=== PATIENT | male | born 1960 | race Caucasian/White ===

== ENCOUNTER 2020-01-03 07:14 | Outpatient (REF) | payer MEDICARE, SELFPAY ==
[2020-01-03 11:18] LABS: Hematocrit 40.4 % (42-52); Hemoglobin 13.5 g/dl (14.0-18.0); Mean Corpuscular HGB Conc 33.4 g/dl (31.0-36.0); Mean Corpuscular Hemoglobin 29.5 pg (27.0-33.0); Mean Corpuscular Volume 88.2 fL (80-98); Mean Platelet Volume 9.9 fL (9.4-12.4); Platelet Count 243 X10*3/uL (160-400); Red Blood Count 4.58 X10*6/uL (4.60-5.80); Red Cell Distribution Width 13.1 % (11.0-16.0); White Blood Count 7.6 X10*3/uL (4.8-10.8)
[2020-01-03 11:47] LABS: Cholesterol 268 mg/dL; HDL Cholesterol 33 mg/dL; LDL Cholesterol Calculated 191 mg/dl; Triglycerides 224 mg/dL
[2020-01-03 12:11] LABS: Prostate Specific Antigen < 0.05 ng/mL (<0.05-4.0)
[2020-01-04 19:21] LABS: Prolactin <1.0 ng/mL (2.0-18.0)
[2020-01-07 21:58] LABS: Dihydrotestosterone <5 ng/dL (12-65)
[2020-01-08 14:42] LABS: IGF-1 (Somatomedin C) 16 ng/mL (50-317)
[2020-01-14 10:51] LABS: IGF-1 Z Score (Male) -3.6
== END 2020-01-03 07:15 | disposition home or self-care (01) ==
LOC: HO.HMGCLDS 07:14
PROVIDERS: PCP Nurse Practitioner Family; Visit Provider Internal Medicine Endocrinology, Diabetes & Metabolism
DX: E23.0 Hypopituitarism (principal); E11.9 Type 2 diabetes mellitus without complications; Z79.899 Other long term (current) drug therapy
CPT/HCPCS: 36415; 80061; 82533; 82642; 84146; 84153; 84305; 85027

== ENCOUNTER 2020-01-08 09:37 | Emergency (ER) | payer MEDICARE, SELFPAY ==
[2020-01-08 09:51] VITALS: BP 162/91; PULSE 66; RESP 16; TEMP 36.5; O2SAT 99; BMI 33.9
--- NOTE | 2020-01-08 10:15 | ED_ITS ---
HPI - Extremity Problem General Chief complaint: Extremity Injury, Upper Stated complaint: arm pain Time Seen by Provider: 01/08/20 10:11 Source: patient Mode of arrival: ambulatory Limitations: no limitations History of Present Illness HPI Narrative: 59 y/o male here with 2 days of worsening left shoulder pain after working outside and doing a lot of raking leaves. He states his shoulder chronically hurts after he fell on it a few months ago. He had imaging at the time of injury and there was no acute injury per his report. He states his shoulder hurts with movement and palpation, worse today. He states it usually hurts more when the weather is rainy. No chest pain, SOB, numbness, tingling or new injury. MD Complaint: extremity pain Onset (ago): day(s) (2) Pain Consistency: constant Location: left Severity scale (1-10): 7 Quality: aching Radiation: distal Relieving factors: cold therapy and immobilization Exacerbating factors: range of motion and palpation Associated symptoms: denies other symptoms Related Data Previous Rx's Medication Instructions Recorded oxycodone 5 mg PO Q8H PRN #10 tab NS 01/08/20 prednisone 40 mg PO DAILY #10 tab 01/08/20 Allergies Allergy/AdvReac Type Severity Reaction Status Date / Time No Known Allergies Allergy Unverified 12/13/19 14:50 [No Known Allergies*] NKA Allergy Unknown Unknown Uncoded 01/08/20 09:55 Review of Systems Review of Systems: Constitutional: No Fever, No Chills Cardiovascular: No Chest Pain, No SOB, No Orthopnea Respiratory: No Cough, No Sputum, No Wheezing Musculoskeletal: + joint pain, No Myalgias Skin: No Skin Lesions, No rash Neuro: No Weakness, No Numbness, No Dizziness, No Headache Heme/Lymph: No Bruising, No Lymphadenopathy All other 10 point ROS are negative. [facility] Past Medical History Attestation statement: The following information was validated with the patient. Medical History (Updated 01/08/20 @ 10:19 by SARIKA Monte) Atrial fibrillation Diabetes High blood pressure Skin cancer Social History Social History Advance Directives: Yes Advance Directives on File: Yes Advance Directives Date on File: 05/28/16 Physical Exam Vital Signs: Vital Signs: Vital Signs Temp Pulse Resp BP Pulse Ox 01/08/20 09:51 97.7 F 66 16 162/91 H 99 Body Mass Index 33.9 Appearance: Alert. Oriented X3. No acute distress. HEENT: normal inspection Neck: Normal inspection. Respiratory: No respiratory distress. Skin: Skin warm and dry. Normal skin color. Normal skin turgor. No rashes. Extremities: left anterior shoulder tenderness at biceps insertion site. no deformity. no erythema. limited abduction. strength normal. NV intact. Neuro: Oriented X 3. No sensory deficit. Course Course Course Narrative: signs, symptoms and exam consistent with overuse injury ie tendonitis - will treat with short course of oral steroids. unable to use NSAID given he is on Eliquis for Afib. he is due to see ortho next Tuesday and is going to ask about joint injection at that time. no chest pain, sob, or radiating pain to suggest cardiac etiology. he is stable for discharge. placed in sling for comfort. Discharge Plan Discharge Clinical Impression: Tendonitis of shoulder, left Patient Disposition: Home, Self-Care Instructions: Tendinitis (ED) Additional Instructions: Follow up with your Orthopedic doctor next week as schedule. Use ice and/or heat several times per day. Limit use of your left arm until evaluated by Orthopedics. If you develop worsening pain, numbness, or loss of function call your doctor or come back to the ER for further evaluation. Prescriptions: New prednisone 20 mg tablet 40 mg PO DAILY Qty: 10 RF: 0 oxycodone 5 mg tablet 5 mg PO Q8H PRN (Reason: pain) Qty: 10 RF: 0
== END 2020-01-08 10:37 | disposition home or self-care (01) ==
PROVIDERS: Emergency Provider Emergency Medicine; PCP Nurse Practitioner Family
DX: M75.92 Shoulder lesion, unspecified, left shoulder (principal); I48.91 Unspecified atrial fibrillation; E11.9 Type 2 diabetes mellitus without complications; Z85.828 Personal history of other malignant neoplasm of skin; Z79.84 Long term (current) use of oral hypoglycemic drugs
CPT/HCPCS: 99283

== ENCOUNTER → 2020-01-14 09:27 | Outpatient (BNVA) | payer MEDICARE, SELFPAY | PROVIDERS: PCP Nurse Practitioner Family; Referring Provider Nurse Practitioner Family; Visit Provider Orthopaedic Surgery | DX: M75.52 Bursitis of left shoulder (principal) | CPT/HCPCS: 20610; 99213; J1100 ==

== ENCOUNTER 2020-01-21 07:25 | Outpatient (REF) | payer MEDICARE, SELFPAY | END 2020-01-21 07:26 | disposition home or self-care (01) | LOC: HO.HMGCLDS 07:25 | PROVIDERS: PCP Nurse Practitioner Family; Visit Provider Internal Medicine Endocrinology, Diabetes & Metabolism | DX: E03.9 Hypothyroidism, unspecified (principal) | CPT/HCPCS: 84439 ==

== ENCOUNTER 2020-01-23 21:13 | Emergency (ER) | payer MEDICARE, SELFPAY ==
[2020-01-23 21:21] VITALS: BP 140/76; BP 150/77; PULSE 71; PULSE 72; RESP 16; TEMP 37; O2SAT 96; BMI 33.9
--- NOTE | 2020-01-23 21:42 | ED.WEAKNESS ---
HPI - Weakness General Chief complaint: Weakness Stated complaint: NAUSEA,WEAKNESS Time Seen by Provider: 01/23/20 21:42 Source: patient and EMS Mode of arrival: EMS Limitations: other (vague historian) History of Present Illness MD Complaint: generalized weakness Onset (ago): day(s) (1) Duration: constant Location: generalized Migration: none Severity: moderate Relieving factors: none Exacerbating factors: none Context: other (states he received his flu shot yesterday and started to feel weak and short of breath) Associated symptoms: loss of appetite, nausea/vomiting and shortness of breath Related Data Home Medications Medication Instructions Recorded Confirmed albuterol 90 mcg INHALATION 01/15/20 01/22/20 diltiazem HCl 120 mg PO BID 01/15/20 01/22/20 docusate sodium [Colace] 100 mg PO DAILY 01/15/20 01/22/20 flecainide 100 mg PO Q12H 01/15/20 01/22/20 fluticasone propion-salmeterol 1 inh INHALATION BID 01/15/20 01/22/20 [Advair Diskus] glipizide 5 mg PO DAILY 01/15/20 01/22/20 metformin 500 mg PO DAILY 01/15/20 01/22/20 blood sugar diagnostic #10 ea 01/22/20 01/22/20 prednisone 5 mg tablet 5 mg PO DAILY 01/22/20 01/22/20 Previous Rx's Medication Instructions Recorded oxycodone 5 mg PO Q8H PRN #10 tab NS 01/08/20 apixaban 5 mg tablet 5 mg PO BID #180 tab 01/14/20 Allergies Allergy/AdvReac Type Severity Reaction Status Date / Time No Known Allergies Allergy Verified 01/22/20 18:08 [No Known Allergies*] NKA Allergy Unknown Unknown Uncoded 01/08/20 09:55 Review of Systems Review of Systems: Constitutional : No Fever, pos Chills ENT/Mouth : No sore throat, No Rhinorrhea, No Swallowing Difficulty Eyes: No Eye Pain, No Swelling, No Redness Cardiovascular : No Chest Pain, positive SOB, No Orthopnea, no Edema Respiratory : pos Cough, No Sputum, No Wheezing, positive dyspnea Gastrointestinal : pos Nausea, pos Vomiting, No Diarrhea, No abdominal Pain, No Hematochezia, No Melena Genitourinary : No Dysuria, No Urinary Frequency, No Hematuria Musculoskeletal : No joint pain, No Myalgias Skin : No Skin Lesions, No rash Neuro : pos diffuse Weakness, No Numbness, No Dizziness, No Headache Psych : No Anxiety/Panic, No Depression Heme/Lymph: No Bruising, No Lymphadenopathy Endocrine : No Polyuria, No Polydipsia All other systems reviewed and are negative PMFSH Past Medical History Medical History Adrenal insufficiency Atrial fibrillation Bursitis of left shoulder Diabetes High blood pressure Skin cancer Surgical History History of melanoma excision History of tonsillectomy S/P excision of lipoma Family History Family History Father Cancer of prostate HTN (hypertension) Mother HTN (hypertension) Brother No problems noted. Brother No problems noted. Brother No problems noted. Social History Social History Alcohol intake: never Smoking Status: Never smoker Use of substances other than those prescribed or required for medical reasons: No Advance Directives: No Advance Directives Information Provided: No Advance Directives Date on File: 05/28/16 Physical Exam Vital Signs: Vital Signs: Vital Signs Temp Pulse Resp BP Pulse Ox 01/23/20 23:58 99.1 F 72 16 146/66 H 95 01/23/20 22:17 18 01/23/20 21:21 98.6 F 72 16 150/77 H 96 Body Mass Index 33.9 Appearance: Alert. Oriented X3. Mild acute distress. whispering answers, keeping eyes closed Eyes: Pupils equal, round and reactive to light. ENT: Pharynx normal. Neck: Normal inspection. Neck supple. CVS: Normal heart rate and rhythm. Pulses normal. Respiratory: No respiratory distress. Breath sounds normal. Abdomen: Soft and nontender. Skin: Skin warm and dry. Normal skin color. Normal skin turgor. Extremities: No lower extremity edema. No calf ttp Neuro: Oriented X 3. No motor deficit. No sensory deficit. Course Course Course Narrative: no acute findings at this time, stable VS, can tolerate PO, at this time stable for DC 141 AM patient states he feels a lot better and wants to go home, steady gait, checked RUE has small hematoma at injection site but no signs of infection MDM - Weakness MDM Narrative Medical decision making narrative: 59 yo male with recent flu shot c/o weakness diffusely no parasthesia, shortness of breath, no prior interactions at this time will need labs, EKG, CXR, flu swab, COVID swab, IV steroids, IV morphine for pain, albuterol neb, dispo per results and findings. Lab Data Result diagrams: 01/23/20 22:11 01/23/20 23:29 Labs: Lab Results 01/23/20 01/23/20 01/23/20 Range/Units 22:11 22:11 22:33 WBC 6.3 (4.8-10.8) X10*3/uL RBC 4.97 (4.60-5.80) X10*6/uL Hgb 14.6 (14.0-18.0) g/dl Hct 43.7 (42-52) % MCV 87.9 (80-98) fL MCH 29.4 (27.0-33.0) pg MCHC 33.4 (31.0-36.0) g/dl RDW 12.8 (11.0-16.0) % Plt Count TNP MPV 10.6 (9.4-12.4) fL Immature Gran % (Auto) 0.8 H (0.0-0.4) % Neut % (Auto) 58.5 (45-73) % Lymph % (Auto) 32.5 (20-40) % [place] % (Auto) 5.3 (2-11) % Eos % (Auto) 1.9 (0-4) % Baso % (Auto) 1.0 (0-2) % Lymph # (Auto) 2.0 (1.2-4.9) X10*3/uL [place] # (Auto) 0.3 (0.1-1.2) X10*3/uL Eos # (Auto) 0.1 (0.0-0.4) X10*3/uL Baso # (Auto) 0.1 (0.0-0.2) X10*3/uL Abs Immat Gran (auto) 0.05 H (0.00-0.03) X10*3/uL Absolute Neuts (auto) 3.7 (2.0-8.3) X10*3/uL Absolute Nucleated RBC 0.000 (0.0-0.012) X10*3/uL Nucleated RBC % (auto) 0.0 (0.0-0.2) /100WBC Smear Tech's Comments VERIFIED PT (10.8-13.0) SEC INR (0.9-1.1) APTT (24.1-38.0) SEC VBG pH (7.32-7.43) VBG pCO2 mmhg VBG Oxygen Liters/Min VBG pO2 mmhg VBG HCO3 mmol/L VBG O2 Saturation % VBG Base Excess mmol/L Sodium Cancelled Potassium Cancelled Chloride Cancelled Carbon Dioxide Cancelled Anion Gap Cancelled BUN Cancelled Creatinine Cancelled Estim Creat Clear Calc Cancelled Estimated GFR Cancelled Random Glucose Cancelled Lactic Acid (0.5-2.0) mmol/L Calcium Cancelled Magnesium Cancelled Total Bilirubin Cancelled Direct Bilirubin Cancelled AST Cancelled ALT Cancelled Alkaline Phosphatase Cancelled Troponin I High Sens (<3.5-35.0) ng/L B-Natriuretic Peptide (<100) pg/mL Total Protein Cancelled Albumin Cancelled Lipase Cancelled TSH Cancelled 01/23/20 01/23/20 01/23/20 Range/Units 22:33 22:33 23:29 WBC (4.8-10.8) X10*3/uL RBC (4.60-5.80) X10*6/uL Hgb (14.0-18.0) g/dl Hct (42-52) % MCV (80-98) fL MCH (27.0-33.0) pg MCHC (31.0-36.0) g/dl RDW (11.0-16.0) % Plt Count MPV (9.4-12.4) fL Immature Gran % (Auto) (0.0-0.4) % Neut % (Auto) (45-73) % Lymph % (Auto) (20-40) % [place] % (Auto) (2-11) % Eos % (Auto) (0-4) % Baso % (Auto) (0-2) % Lymph # (Auto) (1.2-4.9) X10*3/uL [place] # (Auto) (0.1-1.2) X10*3/uL Eos # (Auto) (0.0-0.4) X10*3/uL Baso # (Auto) (0.0-0.2) X10*3/uL Abs Immat Gran (auto) (0.00-0.03) X10*3/uL Absolute Neuts (auto) (2.0-8.3) X10*3/uL Absolute Nucleated RBC (0.0-0.012) X10*3/uL Nucleated RBC % (auto) (0.0-0.2) /100WBC Smear Tech's Comments PT 16.6 H (10.8-13.0) SEC INR 1.4 H (0.9-1.1) APTT 34.0 (24.1-38.0) SEC VBG pH (7.32-7.43) VBG pCO2 mmhg VBG Oxygen Liters/Min VBG pO2 mmhg VBG HCO3 mmol/L VBG O2 Saturation % VBG Base Excess mmol/L Sodium Potassium Chloride Carbon Dioxide Anion Gap BUN Creatinine Estim Creat Clear Calc Estimated GFR Random Glucose Lactic Acid 0.9 (0.5-2.0) mmol/L Calcium Magnesium Total Bilirubin Direct Bilirubin AST ALT Alkaline Phosphatase Troponin I High Sens < 3.5 (<3.5-35.0) ng/L B-Natriuretic Peptide 27 (<100) pg/mL Total Protein Albumin Lipase TSH 01/23/20 01/23/20 01/23/20 Range/Units 23:29 23:29 23:29 WBC (4.8-10.8) X10*3/uL RBC (4.60-5.80) X10*6/uL Hgb (14.0-18.0) g/dl Hct (42-52) % MCV (80-98) fL MCH (27.0-33.0) pg MCHC (31.0-36.0) g/dl RDW (11.0-16.0) % Plt Count MPV (9.4-12.4) fL Immature Gran % (Auto) (0.0-0.4) % Neut % (Auto) (45-73) % Lymph % (Auto) (20-40) % [place] % (Auto) (2-11) % Eos % (Auto) (0-4) % Baso % (Auto) (0-2) % Lymph # (Auto) (1.2-4.9) X10*3/uL [place] # (Auto) (0.1-1.2) X10*3/uL Eos # (Auto) (0.0-0.4) X10*3/uL Baso # (Auto) (0.0-0.2) X10*3/uL Abs Immat Gran (auto) (0.00-0.03) X10*3/uL Absolute Neuts (auto) (2.0-8.3) X10*3/uL Absolute Nucleated RBC (0.0-0.012) X10*3/uL Nucleated RBC % (auto) (0.0-0.2) /100WBC Smear Tech's Comments PT (10.8-13.0) SEC INR (0.9-1.1) APTT (24.1-38.0) SEC VBG pH 7.36 (7.32-7.43) VBG pCO2 46 mmhg VBG Oxygen Liters/Min Not Reportable VBG pO2 68 mmhg VBG HCO3 26 mmol/L VBG O2 Saturation 93.8 % VBG Base Excess -0.2 mmol/L Sodium 135 Potassium 4.3 Chloride 99 Carbon Dioxide 25 Anion Gap 15 BUN 20 H Creatinine 1.31 Estim Creat Clear Calc 83.4 Estimated GFR 56 Random Glucose 80 Lactic Acid (0.5-2.0) mmol/L Calcium 8.0 L Magnesium 1.9 Total Bilirubin 0.6 Direct Bilirubin 0.2 AST 32 ALT 29 Alkaline Phosphatase 42 D Troponin I High Sens (<3.5-35.0) ng/L B-Natriuretic Peptide (<100) pg/mL Total Protein 6.7 Albumin 4.2 Lipase 31 TSH 2.11 ECG Data Attestation: I personally reviewed and interpreted this ECG as follows: ECG interpretation date: 01/23/20 ECG interpretation time: 22:54 Interpretation: Rate: 64 Rhythm: NSR [place]: normal Normal P waves. 1st degree AVB Normal QRS complex. poor R wave progression ST T wave : nonspecific qTC: normal prior studies: no acute ischemia The study has been interpreted contemporaneously by me. . Discharge Plan Discharge Clinical Impression: Acute viral syndrome Patient Disposition: Home, Self-Care Instructions: Viral Syndrome (ED) Additional Instructions: you were tested for COVID we will call you with results in 2 to 4 days, wear a mask, socially distance Prescriptions: No Action Eliquis 5 mg tablet 5 mg PO BID Qty: 180 RF: 2 metformin 500 mg Tablet 500 mg PO DAILY RF: 0 diltiazem HCl 120 mg Capsule,Extended Release 12 Hr 120 mg PO BID RF: 0 flecainide 100 mg Tablet 100 mg PO Q12H RF: 0 glipizide 5 mg Tablet 5 mg PO DAILY RF: 0 fluticasone propion-salmeterol [Advair Diskus] 250-50 mcg/dose Blister With Device 1 inh INHALATION BID RF: 0 albuterol 90 mcg/actuation Aerosol 90 mcg INHALATION RF: 0 docusate sodium [Colace] 100 mg Capsule 100 mg PO DAILY RF: 0 oxycodone 5 mg tablet 5 mg PO Q8H PRN (Reason: pain) Qty: 10 RF: 0 prednisone 5 mg tablet 5 mg PO DAILY RF: 0 (DME) FreeStyle Lite Strips Strip See Rx Instructions strip Not Applicable DAILY Qty: 10 RF: 0 Referrals: Alverto Shen, CERTIFIED GENETIC COUNSELOR-BC [Primary Care Provider] - 2 days (if not better) Stand Alone Forms: Work/School Release
--- NOTE | 2020-01-23 21:45 | ECG_ITS ---
Test Reason : WEAKNESS Blood Pressure : / mmHG Vent. Rate : 064 BPM Atrial Rate : 064 BPM P-R Int : 264 ms QRS Dur : 100 ms QT Int : 426 ms P-R-T Axes : 039 007 045 degrees QTc Int : 439 ms Sinus rhythm with 1st degree A-V block Septal infarct (cited on or before 22-JUL-2018) Nonspecific ST and T wave abnormality Abnormal ECG When compared with ECG of 09-AUG-2019 16:00, Nonspecific ST abnormality is now Present Inferior leads Lateral leads No significant changes seen Referred By: Elana Morejon Electronically Signed By:AVEL RAHMAN MD
--- NOTE | 2020-01-23 21:45 | XR_ITS ---
EXAMINATION: XR CHEST CLINICAL INFORMATION: Cough. COMPARISON: Chest x-ray 07/17/2019 TECHNIQUE: Frontal portable view of the chest was obtained. 9:46 PM FINDINGS: No significant abnormality is noted involving the heart, lungs, mediastinum, bony thorax or soft tissues. XR/XR chest 1V IMPRESSION: Unremarkable examination.
[2020-01-23] MEDS: Albuterol Sulfate (0.083%) 2.5 MG/3 ML VIAL.NEB INHALE (21:56)
[2020-01-23] MEDS: 0.9 % Sodium Chloride 1,000 ML 999 ML IVCONT (22:03)
[2020-01-23 22:17] VITALS: RESP 18
[2020-01-23] MEDS: methylPREDNISolone Sod Succ/PF 125 MG/2 ML VIAL 60 MG IVPUSH (22:17)
[2020-01-23] MEDS: ondansetron HCL 4 MG/2 ML VIAL IVPUSH (22:17)
[2020-01-23] MEDS: Morphine Sulfate 4 MG/ML CARTRIDGE IVPUSH (22:17)
[2020-01-23 22:24] LABS: Lymphocytes Percent Auto 32.5 % (20-40); MANUAL DIFF FLAG SCAN; Mean Corpuscular Volume 87.9 fL (80-98); PLT CLUMP 1; SCAN SMEAR FLAG 1
[2020-01-23 22:26] LABS: Basophils Absolute Auto 0.1 X10*3/uL (0.0-0.2); Eosinophils Absolute Auto 0.1 X10*3/uL (0.0-0.4); Eosinophils Percent Auto 1.9 % (0-4); Hematocrit 43.7 % (42-52); Hemoglobin 14.6 g/dl (14.0-18.0); Imm Gran Abs Auto 0.05 X10*3/uL (0.00-0.03); Imm Gran Pct Auto 0.8 % (0.0-0.4); Mean Corpuscular HGB Conc 33.4 g/dl (31.0-36.0); Mean Corpuscular Hemoglobin 29.4 pg (27.0-33.0); Mean Platelet Volume 10.6 fL (9.4-12.4); Monocytes Absolute Auto 0.3 X10*3/uL (0.1-1.2); Monocytes Percent Auto 5.3 % (2-11); Neutrophils Absolute Auto 3.7 X10*3/uL (2.0-8.3); Neutrophils Percent Auto 58.5 % (45-73); Red Blood Count 4.97 X10*6/uL (4.60-5.80); Red Cell Distribution Width 12.8 % (11.0-16.0); White Blood Count 6.3 X10*3/uL (4.8-10.8)
[2020-01-23 22:46] LABS: SLIDE REVIEW VERIFIED
[2020-01-23 22:51] LABS: INTERNATIONAL NORM RATIO 1.4 (0.9-1.1); Prothrombin Time 16.6 SEC (10.8-13.0)
[2020-01-23 23:35] LABS: B Type Natriuretic Peptide 27 pg/mL (<100); Troponin-I High Sensitivity < 3.5 ng/L (<3.5-35.0)
[2020-01-23 23:54] LABS: Base Excess VBG -0.2 mmol/L; HCO3 VBG 26 mmol/L; Oxygen Saturation VBG 93.8 %; PCO2 VBG 46 mmhg; PO2 VBG 68 mmhg; pH VBG 7.36 (7.32-7.43)
[2020-01-23 23:58] VITALS: BP 146/66; PULSE 72; RESP 16; TEMP 37.3; O2SAT 95
[2020-01-24 00:21] LABS: Alanine Aminotransferase 29 U/L (0-40); Albumin Level 4.2 g/dL (3.5-5.0); Alkaline Phosphatase 42 U/L (39-117); Aspartate Amino Transferase 32 U/L (5-37); Bilirubin Direct 0.2 mg/dL (0.0-0.5); Bilirubin Total 0.6 mg/dL (0.0-1.0); Lipase 31 U/L (8-78); Magnesium 1.9 mg/dL (1.6-2.6); Total Protein 6.7 g/dL (6.5-8.0)
[2020-01-24 00:27] LABS: Lactic Acid 0.9 mmol/L (0.5-2.0)
[2020-01-24 00:42] LABS: Thyroid Stimulating Hormone 2.11 mIU/mL (0.32-4.0)
[2020-01-24 01:17] LABS: Anion Gap 15 (12-20); Blood Urea Nitrogen 20 mg/dL (9-16); Carbon Dioxide 25 mmol/L (22-29); Chloride 99 mmol/L (96-108); Creatinine Clr Calc Pharmacy 83.4; Estimated Glomerular Filt Rate 56; Glucose Random 80 mg/dL (60-115); Potassium 4.3 mmol/l (3.3-5.1); Sodium 135 mmol/L (135-145)
[2020-01-24 02:44] LABS: Influenza A PCR NEGATIVE (Negative); Influenza B PCR NEGATIVE (Negative)
[2020-01-24 02:46] LABS: Resp Syncy Virus RNA Qual PCR NEGATIVE (Negative)
== END 2020-01-24 02:10 | disposition home or self-care (01) ==
PROVIDERS: Emergency Provider Emergency Medicine; PCP Nurse Practitioner Family
DX: B34.9 Viral infection, unspecified (principal); R06.02 Shortness of breath; Z20.828 Contact with and (suspected) exposure to other viral communicable diseases; Z79.899 Other long term (current) drug therapy
CPT/HCPCS: 36415; 71045; 80048; 80076; 82803; 83605; 83690; 83735; 83880; 84443; 84484; 85025; 85610; 85730; 87040; 87631; 87635; 93005; 96361; 96374; 96375; 99284; J2270; J2405; J2930

== ENCOUNTER 2020-02-14 14:48 | Outpatient (REF) | payer MEDICARE, SELFPAY ==
--- NOTE | 2020-02-14 14:52 | MR_ITS ---
EXAMINATION: MR LUMBAR SPINE WITHOUT CONTRAST CLINICAL INFORMATION: Lumbar radiculopathy. Sciatic pain. COMPARISON: CT abdomen/pelvis dated 01/03/2019. TECHNIQUE: MRI of the lumbar spine was obtained using routine sequences without contrast. FINDINGS: VERTEBRAL BODIES AND PARASPINAL STRUCTURES: Normal vertebral body alignment. The lumbar lordosis is maintained. No acute fracture or subluxation. No loss of vertebral body height. Loss of intervertebral disc height with disc desiccation at T11-T12, T12-L1, L4-L5, and L5-S1. Additional mild disc desiccation at L3-L4. No abnormal marrow signal. The visualized paraspinal soft tissues are unremarkable. CONUS MEDULLARIS AND CAUDA EQUINA: Normal, terminating at the level of L1. SPINAL LEVELS: T12-L1: No significant disc bulge. No central canal or neural foraminal stenosis. L1-L2: No significant disc bulge. No central canal or neural foraminal stenosis. L2-L3: No significant disc bulge. Bilateral facet arthropathy and thickening of the ligamentum flavum without significant central canal or neural foraminal stenosis. L3-L4: Shallow broad-based disc bulge with bilateral facet arthropathy and thickening of the ligamentum flavum causing mild central canal as well as mild bilateral neural foraminal stenosis. L4-L5: Mild broad-based disc bulge with bilateral facet arthropathy, left greater than right. Thickening of the ligamentum flavum with mild central canal as well as moderate left and mild right neural foraminal stenosis. L5-S1: Shallow broad-based disc bulge with bilateral facet arthropathy causing moderate left and mild right neural foraminal stenosis. MR/MR lumbar spine wo con IMPRESSION: 1. L2-L3 bilateral facet arthropathy and thickening of the ligamentum flavum without significant central canal or neural foraminal stenosis. 2. L3-L4 shallow broad-based disc bulge with bilateral facet arthropathy and thickening of the ligamentum flavum causing mild central canal as well as mild bilateral neural foraminal stenosis. 3. L4-L5 mild broad-based disc bulge with bilateral facet arthropathy, left greater than right. Thickening of the ligamentum flavum with mild central canal as well as moderate left and mild right neural foraminal stenosis. 4. L5-S1 shallow broad-based disc bulge with bilateral facet arthropathy causing moderate left and mild right neural foraminal stenosis.
== END 2020-02-14 14:49 | disposition home or self-care (01) ==
LOC: HO.MRI 14:48
PROVIDERS: Visit Provider Nurse Practitioner Family
DX: M54.16 Radiculopathy, lumbar region (principal)
CPT/HCPCS: 72148

== ENCOUNTER → 2020-04-01 08:53 | Outpatient (BNVA) | payer MEDICARE, SELFPAY | PROVIDERS: PCP Nurse Practitioner Family; Visit Provider Internal Medicine | DX: E66.9 Obesity, unspecified (principal); J44.9 Chronic obstructive pulmonary disease, unspecified; G47.33 Obstructive sleep apnea (adult) (pediatric); Z99.89 Dependence on other enabling machines and devices | CPT/HCPCS: 99212 ==

== ENCOUNTER → 2020-05-05 08:05 | Outpatient (BNVA) | payer MEDICARE, SELFPAY | PROVIDERS: PCP Nurse Practitioner Family; Visit Provider Nurse Practitioner Family | DX: M54.16 Radiculopathy, lumbar region (principal) | CPT/HCPCS: 99202 ==

== ENCOUNTER 2020-05-22 07:16 | Outpatient (REF) | payer MEDICARE, SELFPAY ==
[2020-05-22 12:08] LABS: Prostate Specific Antigen Scr < 0.05 ng/mL (<0.05-4.0)
[2020-05-22 12:18] LABS: Cholesterol 197 mg/dL; HDL Cholesterol 41 mg/dL; LDL Cholesterol Calculated 132 mg/dl; Triglycerides 124 mg/dL
[2020-05-22 12:23] LABS: Creatinine Urine 149.07 mg/dL; Microalbum/Creatinine Ratio Ur 13.4 ug/mg cr
== END 2020-05-22 07:17 | disposition home or self-care (01) ==
LOC: HO.HMGCLDS 07:16
PROVIDERS: PCP Nurse Practitioner Family; Visit Provider Internal Medicine Medical Oncology
DX: E11.9 Type 2 diabetes mellitus without complications (principal); Z12.5 Encounter for screening for malignant neoplasm of prostate
CPT/HCPCS: 36415; 80061; 82043; 84153

== ENCOUNTER → 2020-06-02 08:02 | Outpatient (BNVA) | payer MEDICARE, SELFPAY | PROVIDERS: PCP Nurse Practitioner Family; Visit Provider Nurse Practitioner Family | DX: M54.16 Radiculopathy, lumbar region (principal); Z79.899 Other long term (current) drug therapy | CPT/HCPCS: 99212 ==

== ENCOUNTER → 2020-06-16 08:28 | Outpatient (BNVA) | payer MEDICARE, SELFPAY | PROVIDERS: PCP Nurse Practitioner Family; Visit Provider Nurse Practitioner Family | DX: M54.16 Radiculopathy, lumbar region (principal); M47.817 Spondylosis without myelopathy or radiculopathy, lumbosacral region | CPT/HCPCS: Q3014 ==

== ENCOUNTER 2020-07-15 11:00 | Outpatient (REF) | payer MEDICARE, SELFPAY ==
--- NOTE | ~2020-07-15 | US_ITS ---
EXAMINATION: US EXTREMITY NONVASCULAR CLINICAL INFORMATION: Malignant melanoma of skin. Swelling right groin. Right lymphadenopathy. COMPARISON: None. TECHNIQUE: Grayscale, Doppler, and cine images were obtained in the right upper/inner thigh. FINDINGS: Heterogeneous subcutaneous focus in the region of the patient's palpable findings which appears just deep to the skin surface. This measures 2.2 x 1.6 x 1.1 cm. No associated Doppler detectable vascular flow. Lymph node resection in 2017. No additional soft tissue mass or fluid collection. No significant lymphadenopathy. US/US extremity nonvascular IMPRESSION: Heterogeneous subcutaneous focus without Doppler detectable vascular flow in the region of the patient's probable findings measuring up to 2.3 cm. Findings could represent scar tissue. No significant lymphadenopathy.
== END 2020-07-15 11:01 | disposition home or self-care (01) ==
LOC: HO.HMGCX 11:00
PROVIDERS: Visit Provider Surgery
DX: C43.9 Malignant melanoma of skin, unspecified (principal); R59.0 Localized enlarged lymph nodes; R19.00 Intra-abdominal and pelvic swelling, mass and lump, unspecified site
CPT/HCPCS: 76882

== ENCOUNTER → 2020-07-17 12:29 | Outpatient (BNVA) | payer MEDICARE, SELFPAY | PROVIDERS: PCP Nurse Practitioner Family; Visit Provider Internal Medicine | DX: Z01.810 Encounter for preprocedural cardiovascular examination (principal); E11.9 Type 2 diabetes mellitus without complications; I48.0 Paroxysmal atrial fibrillation; I10 Essential (primary) hypertension; G47.33 Obstructive sleep apnea (adult) (pediatric); Z99.89 Dependence on other enabling machines and devices; Z88.7 Allergy status to serum and vaccine; Z79.52 Long term (current) use of systemic steroids; Z79.84 Long term (current) use of oral hypoglycemic drugs; Z79.899 Other long term (current) drug therapy | CPT/HCPCS: 93005; 99212 ==

== ENCOUNTER → 2020-08-04 10:00 | Outpatient (BNVA) | payer OTHER, SELFPAY | PROVIDERS: PCP Nurse Practitioner Family; Visit Provider Internal Medicine | DX: J44.9 Chronic obstructive pulmonary disease, unspecified (principal); G47.33 Obstructive sleep apnea (adult) (pediatric); E66.9 Obesity, unspecified; Z99.89 Dependence on other enabling machines and devices | CPT/HCPCS: 99212 ==

== ENCOUNTER 2020-08-12 06:53 | Outpatient (REF) | payer OTHER, SELFPAY ==
--- NOTE | ~2020-08-12 | FL_ITS ---
EXAMINATION: XR FLUOROSCOPY WITH IMAGES CLINICAL INFORMATION: M47.817 - Spondylosis without myelopathy or radiculopathy COMPARISON: MR lumbar spine 02/13/2023 TECHNIQUE: Fluoroscopy performed by Janette Rodriguez NP. Fluoroscopy time: 0.8 minutes DAP: 18.6 Gycm2 Images: 6 FINDINGS: There are spinal needles at the bilateral outer neural foramen of L3, L4, and L5 levels. There is contrast seen in the nerve sheaths with some transforaminal epidural extension. No visible vascular communication. FL/FL guidance in treatment room IMPRESSION: Fluoroscopy for pain management procedures.
== END 2020-08-12 06:54 | disposition home or self-care (01) ==
LOC: HO.RADIR 06:53
PROVIDERS: Visit Provider Anesthesiology
DX: M47.817 Spondylosis without myelopathy or radiculopathy, lumbosacral region (principal); M54.16 Radiculopathy, lumbar region; Z79.899 Other long term (current) drug therapy
CPT/HCPCS: 64493; 64494; Q9967

== ENCOUNTER → 2021-08-05 13:20 | Outpatient (RCR) | payer MEDICARE, SELFPAY ==
--- NOTE | 2020-02-08 13:10 | MHC.PT.EP ---
[facility] [place] Office [place] Office [place] Office [address] [phone] F: [phone] F: [phone] F: [phone] F: [phone] Physical Therapy Plan of Care Date of Evaluation: 02/07/20 Date of Surgery: Diagnosis: Bursitis L shoulder. Assessment: Pt is a R hand dominant male referred to PT for eval and treat of L shoulder bursitis resulting in decreased tolerance and ability for reaching high shelves, dressing pullovers, driving, carrying objects of weight and disturbed sleep secondary to decreased R shoulder ROM and strength, decreased scapular posture, and pain. Pt is deemed an appropriate candidate to receive skilled PT services to address his physical impairments in order to improve his functional ability. Frequency and Duration: The patient will be seen 2 x / wk x 5 wks. Short Term Goals: In 1 week: initiate HEP with evidence of compliance. In 3 weeks: Pt will be able to dress pullovers with at most 4/10 difficulty: initial: 10/10 Longterm Goals: In 5 weeks: I with home program. In 5 weeks: Pt will be able to place objects on high shelf with managed Sx. Treatment Plan: Modalities to reduce pain, spasms and effusion. Manual therapy to restore motion and function. Therapeutic exercise to improve strength and flexibility. Neuromuscular re-education for posture and balance. Therapeutic activities to return to functional activities of daily living. Please sign and return to therapist. Thank you for your referral.
--- NOTE | 2020-04-04 09:51 | MHC.PT.DC ---
[facility] [place] Office [place] [facility] [place] [facility] [address] Jamila Blanton [address] [phone] F: [phone] F: [phone] F: [phone] F: [phone] Physical Therapy Discharge Report Diagnosis: Bursitis L shoulder. Date of Surgery: NA Date of Evaluation: 02/07/20 Date of Discharge: 04/04/20 Treatments to Date: 14 Cancellations to Date: 0 No Shows to Date: 0 Discharge Status: Achieved Goals Improved Function Independent with HEP Discharge Summary: Renny has been an active participant in his therapy in and out of the clinic, he has met all of his therapeutic goals, is i with [facility] and is in agreement with DC at this times. Subjective shoulder disability questionnaire improved from 118/130 to 42/130 which is a significant improvement in Renny's perception of his functional ability. Electronically signed by: Joés Miguel Bhatt PT. Please sign and return to therapist. Thank you for your referral.
== END | disposition home or self-care (01) ==
LOC: HO.PTCHIC 02-07 09:28
PROVIDERS: PCP Nurse Practitioner Family; Visit Provider Orthopaedic Surgery
DX: M75.52 Bursitis of left shoulder (principal)
CPT/HCPCS: 97014; 97110; 97162

== ENCOUNTER → 2023-11-24 14:38 | Outpatient (RCR) | payer MEDICARE, SELFPAY ==
[2020-01-15 08:20] VITALS: BP 127/68; PULSE 63; RESP 18; TEMP 37.2; O2SAT 96
[2020-01-15 08:22] VITALS: BMI 33.7
[2020-01-15 08:33] LABS: MANUAL DIFF FLAG NO
[2020-01-15 08:44] LABS: Basophils Percent Auto 0.1 % (0-2); Eosinophils Percent Auto 0.1 % (0-4); Hematocrit 39.7 % (42-52); Hemoglobin 13.6 g/dl (14.0-18.0); Imm Gran Pct Auto 0.7 % (0.0-0.4); Lymphocytes Absolute Auto 2.4 X10*3/uL (1.2-4.9); Lymphocytes Percent Auto 15.5 % (20-40); Mean Corpuscular HGB Conc 34.3 g/dl (31.0-36.0); Mean Corpuscular Hemoglobin 29.6 pg (27.0-33.0); Mean Corpuscular Volume 86.3 fL (80-98); Monocytes Absolute Auto 0.5 X10*3/uL (0.1-1.2); Monocytes Percent Auto 3.4 % (2-11); Neutrophils Absolute Auto 12.3 X10*3/uL (2.0-8.3); Neutrophils Percent Auto 80.2 % (45-73); Platelet Count 262 X10*3/uL (160-400); Red Cell Distribution Width 12.7 % (11.0-16.0); White Blood Count 15.3 X10*3/uL (4.8-10.8)
--- NOTE | 2020-01-15 08:49 | PM.HEMONCPN ---
Medical Summary - Medical Summary Chief complaint: follow-up for malignant melanoma. Medical Summary: DIAGNOSIS: 1. Malignant melanoma of lower back 2. S/P WIDE EXCISION OF MELANOMA 3. S/P RIGHT INGUINAL AND FEMORAL LYMPHADENECTOMY 4. Mass of left kidney. CURRENT THERAPY: IPILIMUMAB, 4TH CYCLE ON 11/19. STARTED MAINTAINENCE IPILIMUMAB ON January. SECOND DOSE ON April. Completed the third dose 08/05/17. Fifth dose, 01/20/18. Sixth dose on 04/14/18. Seventh dose on 07/07/2018. Eleventh dose On 11/29. Interval History Interval history: This is a pleasant 59-year-old gentleman, here for a follow-up visit. He is not feeling too well. He feels rather fatigued. He cant rake like before. He has noted some more fatty tumors. he has to see Dr. Peters, to have them excised. He tells me he has had a, [place], in his back, for 37 years. It hurts to move. He thinks his sciatic nerve is impinged. He has to see Dr. Carleen Wheeler, to have it removed. He has COPD. That is the limiting factor for him unable to work. He needs some dental work. he will eventually need an implant. He denies headache no dizziness. No fever nor chills. No further chest pain or trouble breathing. He denies cough nor sputum. He denies abdominal pain nausea vomiting heartburn indigestion. His bowels are working without any gross blood in it. His appetite is not that great. He has gained weight. He is in good spirits. Rest of the review of systems is unremarkable. Review of Systems - Constitutional Reports fatigue, Denies fever(s) - Eyes Denies blurry vision - ENT Reports system reviewed and no additional complaints, except as documented, Reports as per HPI - Cardiovascular Denies chest pain - Respiratory Denies cough - Gastrointestinal Denies abdominal pain, Denies change in bowel habits - Musculoskeletal Reports back pain - Integumentary/Breasts Skin/Breast: Denies acne - Psychiatric Denies change in appetite - Endocrine Denies cold intolerance - Allergic/Immunologic Denies GI upset with certain foods PMFSH Medical History: Medical History (Last Updated 01/14/20 @ 12:51 by Bala Wang MD) Atrial fibrillation Bursitis of left shoulder Diabetes High blood pressure Skin cancer Home Medications and Allergies Home Medications Medication Instructions Recorded Confirmed Type naproxen 500 mg tablet 500 mg PO BID 01/14/20 History albuterol 90 mcg INHALATION 01/15/20 History diltiazem HCl 120 mg PO BID 01/15/20 01/15/20 History docusate sodium [Colace] 100 mg PO DAILY 01/15/20 01/15/20 History flecainide 100 mg PO Q12H 01/15/20 01/15/20 History fluticasone propion-salmeterol 1 inh INHALATION BID 01/15/20 01/15/20 History [Advair Diskus] glipizide 5 mg PO DAILY 01/15/20 01/15/20 History metformin 500 mg PO DAILY 01/15/20 01/15/20 History prednisone 25 mg PO DAILY 01/15/20 History Allergies Allergy/AdvReac Type Severity Reaction Status Date / Time No Known Allergies Allergy Verified 01/14/20 10:06 [No Known Allergies*] NKA Allergy Unknown Unknown Uncoded 01/08/20 09:55 Exam Vital signs: Vital Signs Temp 98.9 F 01/15/20 08:20 Pulse 63 01/15/20 08:20 Resp 18 01/15/20 08:20 BP 127/68 01/15/20 08:20 Pulse Ox 96 01/15/20 08:20 Intake & Output 01/14/20 01/15/20 01/15/20 18:59 06:59 18:59 Other: Weight 119.2 kg Weight 119.2 kg Body Mass Index 33.7 - Constitutional Present: no acute distress - Routine HEENT Exam Head: Present: normal inspection Eye: Present: normal appearance ENT: Present: mucous membranes moist - Routine Neck Exam Present: full ROM - Routine Respiratory Exam Present: CTAB - Routine Cardiovascular Exam Cardiovascular: Present: RRR, S1, S2 - Routine Abdominal Exam Present: soft, nontender - Routine Back/Spine/Pelvis Exam Back/Spine: Present: full ROM Pelvis: Present: left sciatic notch tenderness - Routine Neurological Exam Present: alert, oriented X3, vision grossly intact - Detailed Neurological Exam: Coma Scale Eye Opening: Spontaneous (4) Motor Response: Obeys commands (6) - Routine Psychiatric Exam Present: normal affect Data - Labs CBC & Chem 7: 01/15/20 08:15 01/15/20 08:15 Labs: Laboratory Results - last 24 hr 01/15/20 08:15 WBC 15.3 H RBC 4.60 Hgb 13.6 L Hct 39.7 L MCV 86.3 MCH 29.6 MCHC 34.3 RDW 12.7 Plt Count 262 MPV 10.0 Immature Gran % (Auto) 0.7 H Neut % (Auto) 80.2 H Lymph % (Auto) 15.5 L [place] % (Auto) 3.4 Eos % (Auto) 0.1 Baso % (Auto) 0.1 Lymph # (Auto) 2.4 [place] # (Auto) 0.5 Eos # (Auto) 0.0 Baso # (Auto) 0.0 Abs Immat Gran (auto) 0.10 H Absolute Neuts (auto) 12.3 H Absolute Nucleated RBC 0.000 Nucleated RBC % (auto) 0.0 Progress Note: A/P (1) Malignant melanoma Status: Acute Assessment and plan: This is a pleasant 59 year-old gentleman, with history of: 1. Atrial fibrillation. He is under the care of Cardiology. He is on flecainide and Eliquis. 2. Restless leg syndrome. He is taking 2 Tylenol 4 times a day. I have asked him to cut back to twice a day. 3. Malignant Melanoma. He was started on Ipilimumab in July 2016. He tolerated it reasonably well. He developed Hypophysitis, for which he is on Prednisone and Levoxyl. He is being managed by [facility]. He remains on Prednisone 5 mg daily. The dose of Synthroid was optimized. He completed his 3 years course of Ipilimumab maintenance a couple of months ago. Back in the spring, he was in house for COPD exacerbation. he had required increased dose of steroids. A chest x-ray from May 05 revealed: 1. No acute cardiopulmonary process. 2. Sclerotic densities overlying the proximal left humerus are nonspecific, but were not as well-seen previously. Osseous metastatic disease cannot be excluded. He had a bone scan for further evaluation of the nonspecific sclerotic lesions in the left humerus. This was done on June 14 and revealed: 1. There is no abnormality in the left proximal humerus that corresponds to a sclerotic focus on recent radiograph. This suggests a nonaggressive etiology or a density that is not in the humerus. 2. A few mild nonspecific abnormalities are noted as described above and these are all likely arthritic or traumatic in etiology. None of these abnormalities is strongly suspicious for metastatic disease. He is doing fairly well. He has completed the 3 years of adjuvant therapy for melanoma. PLAN: He has to go for some Neurosurgery on his back. he will be seeing Dr. Wheeler, for that. He will return for a follow-up in 3 months time. He will continue to follow up with endocrinology. he will continue to follow up with Dermatology for his detailed skin exams. Thank you, CC: Dr. Shen. Dr. Peters. Code Status FULL CODE - Time Spent With Patient Total time spent is greater than 50% in coordination of care (as documented) at patient's floor/unit and/or counseling patient: 25 - 35 minutes
[2020-01-15 09:05] LABS: Alanine Aminotransferase 22 U/L (0-40); Albumin Level 4.6 g/dL (3.5-5.0); Alkaline Phosphatase 58 U/L (39-117); Anion Gap 15 (12-20); Aspartate Amino Transferase 29 U/L (5-37); Bilirubin Total 0.4 mg/dL (0.0-1.0); Blood Urea Nitrogen 20 mg/dL (9-16); Calcium 9.6 mg/dL (8.4-10.2); Carbon Dioxide 22 mmol/L (22-29); Chloride 105 mmol/L (96-108); Creatinine Clr Calc Pharmacy 80.8; Estimated Glomerular Filt Rate 54; Glucose Random 123 mg/dL (60-115); Potassium 4.1 mmol/l (3.3-5.1); Sodium 138 mmol/L (135-145); Total Protein 7.4 g/dL (6.5-8.0)
[2020-01-15 09:25] LABS: TSH reflex Free T4 1.29 mIU/mL (0.32-4.0)
[2020-04-22 08:32] VITALS: BP 142/74; PULSE 72; RESP 18; TEMP 36.2; O2SAT 97; BMI 35.9
[2020-04-22 08:33] LABS: MANUAL DIFF FLAG NO
[2020-04-22 08:37] LABS: Basophils Absolute Auto 0.1 X10*3/uL (0.0-0.2); Basophils Percent Auto 0.9 % (0-2); Eosinophils Absolute Auto 0.5 X10*3/uL (0.0-0.4); Eosinophils Percent Auto 5.1 % (0-4); Hematocrit 40.9 % (42-52); Hemoglobin 13.3 g/dl (14.0-18.0); Imm Gran Abs Auto 0.06 X10*3/uL (0.00-0.03); Imm Gran Pct Auto 0.6 % (0.0-0.4); Lymphocytes Absolute Auto 4.4 X10*3/uL (1.2-4.9); Lymphocytes Percent Auto 43.3 % (20-40); Mean Corpuscular HGB Conc 32.5 g/dl (31.0-36.0); Mean Corpuscular Hemoglobin 28.4 pg (27.0-33.0); Mean Corpuscular Volume 87.2 fL (80-98); Mean Platelet Volume 9.6 fL (9.4-12.4); Monocytes Absolute Auto 0.4 X10*3/uL (0.1-1.2); Monocytes Percent Auto 3.9 % (2-11); Neutrophils Absolute Auto 4.7 X10*3/uL (2.0-8.3); Neutrophils Percent Auto 46.2 % (45-73); Platelet Count 256 X10*3/uL (160-400); Red Blood Count 4.69 X10*6/uL (4.60-5.80); Red Cell Distribution Width 12.6 % (11.0-16.0); White Blood Count 10.2 X10*3/uL (4.8-10.8)
[2020-04-22 09:03] LABS: Alanine Aminotransferase 17 U/L (0-40); Albumin Level 4.3 g/dL (3.5-5.0); Alkaline Phosphatase 45 U/L (39-117); Anion Gap 15 (12-20); Aspartate Amino Transferase 20 U/L (5-37); Bilirubin Total 0.8 mg/dL (0.0-1.0); Blood Urea Nitrogen 21 mg/dL (9-16); Calcium 8.8 mg/dL (8.4-10.2); Carbon Dioxide 25 mmol/L (22-29); Chloride 105 mmol/L (96-108); Creatinine Clr Calc Pharmacy 99.7; Estimated Glomerular Filt Rate > 60; Glucose Random 125 mg/dL (60-115); Lactate Dehydrogenase 197 U/L (118-273); Sodium 141 mmol/L (135-145)
--- NOTE | 2020-04-22 09:17 | MHC.HEMONC ---
Patient here for follow-up. Labs drawn. Clinical summary updated with nurse. Provider seen patient. Follow-up booked.
--- NOTE | 2020-04-22 11:10 | PM.HEMONCPN ---
Medical Summary - Medical Summary Date of Service: 04/25/20 Medical Summary: DIAGNOSIS: 1. Malignant melanoma of lower back 2. S/P WIDE EXCISION OF MELANOMA 3. S/P RIGHT INGUINAL AND FEMORAL LYMPHADENECTOMY 4. Mass of left kidney. CURRENT THERAPY: IPILIMUMAB, 4TH CYCLE ON 11/19. STARTED MAINTAINENCE IPILIMUMAB ON January. SECOND DOSE ON April. Completed the third dose 08/05/17. Fifth dose, 01/20/18. Sixth dose on 04/14/18. Seventh dose on 07/07/2018. Eleventh dose On 11/29. Interval History Interval history: This is a pleasant 59-year-old gentleman, here for a follow-up visit. He is not feeling too well. He has had lower back pain. He has had it since after the fall. He has had physical therapy for his knee and shoulder. He was on tramadol 50 mg but he has stopped taking it now. He saw Dr. Wheeler for back pain. He does not want to have surgery. He feels rather fatigued. He has COPD. That is the limiting factor for him unable to work. He is currently undergoing dental work. he will eventually need an implant. He denies headache no dizziness. No fever nor chills. No further chest pain or trouble breathing. He denies cough nor sputum. He denies abdominal pain nausea vomiting heartburn indigestion. His bowels are working without any gross blood in it. His appetite is not that great. He is losing weight. He has elected to join the [employer]. He is in good spirits. Rest of the review of systems is unremarkable. He goes for regular skin exams. He has an exam coming up. Previous history: He has noted some more fatty tumors. he has to see Dr. Peters, to have them excised. He tells me he has had a, Steedman, in his back, for 37 years. It hurts to move. He thinks his sciatic nerve is impinged. He has to see Dr. Carleen Wheeler, to have it removed. Review of Systems - Constitutional Reports system reviewed and no additional complaints, except as documented - Eyes Reports system reviewed and no additional complaints, except as documented - ENT Reports system reviewed and no additional complaints, except as documented - Cardiovascular Reports system reviewed and no additional complaints, except as documented - Respiratory Reports no additional respiratory complaints - Gastrointestinal Reports system reviewed and no additional complaints, except as documented - Genitourinary Genitourinary: Reports no additional male genitourinary complaints - Musculoskeletal Reports system reviewed and no additional complaints, except as documented - Integumentary/Breasts Skin/Breast: Reports no additional skin complaints - Neurologic Reports system reviewed and no additional complaints, except as documented - Psychiatric Reports system reviewed and no additional complaints, except as documented - Endocrine Reports no additional endocrine complaints - Hematologic/Lymphatic Reports system reviewed and no additional complaints, except as documented - Allergic/Immunologic Reports system reviewed and no additional complaints, except as documented [facility] Medical History: Medical History (Last Updated 04/01/20 @ 09:44 by Juan Ni MD) Adrenal insufficiency Atrial fibrillation Bursitis of left shoulder COPD (chronic obstructive pulmonary disease) Diabetes High blood pressure Obesity (BMI 30-39.9) KIERA on CPAP Skin cancer Functional capacity: independent ambulation Patient : No Family History: Family History (Last Reviewed 04/23/20 @ 08:31 by MING MarinoNISA) Father Cancer of prostate HTN (hypertension) Mother HTN (hypertension) Brother No problems noted. Brother No problems noted. Brother No problems noted. Surgical History: Surgical History (Last Reviewed 04/23/20 @ 11:35 by MIKE Marino) History of melanoma excision History of tonsillectomy S/P excision of lipoma Social History: Social History (Last Reviewed 04/23/20 @ 08:31 by MIKE Marino) Alcohol History: Alcohol intake: never Advance Directives: Advance Directives Date on File: 05/28/16 Smoking status: Former smoker Home Medications and Allergies Home Medications Medication Instructions Recorded Confirmed Type albuterol 90 mcg INHALATION 01/15/20 04/23/20 History diltiazem HCl 120 mg PO BID 01/15/20 04/23/20 History docusate sodium [Colace] 100 mg PO DAILY 01/15/20 04/23/20 History flecainide 100 mg PO Q12H 01/15/20 04/23/20 History fluticasone propion-salmeterol 1 inh INHALATION BID 01/15/20 04/23/20 History [Advair Diskus] metformin 500 mg PO DAILY 01/15/20 04/23/20 History blood sugar diagnostic #10 ea 01/22/20 04/23/20 History prednisone 5 mg tablet 5 mg PO DAILY 01/22/20 04/23/20 History lancets 28 gauge #100 ea 04/01/20 04/23/20 History ondansetron HCl 4 mg tablet 4 mg PO BID PRN 04/01/20 04/23/20 History tramadol 50 mg tablet 0 mg PO 04/23/20 04/23/20 History Allergies Allergy/AdvReac Type Severity Reaction Status Date / Time No Known Allergies Allergy Verified 04/23/20 08:29 [No Known Allergies*] Exam Vital signs: Vital Signs Temp 97.1 F 04/22/20 08:32 Pulse 72 04/22/20 08:32 Resp 18 04/22/20 08:32 BP 142/74 H 04/22/20 08:32 Pulse Ox 97 04/22/20 08:32 Intake & Output 04/21/20 04/22/20 04/22/20 18:59 06:59 18:59 Other: Weight 127.1 kg Weight 127.1 kg Body Mass Index 35.9 - Constitutional Present: no acute distress - Routine HEENT Exam Head: Present: normal inspection Eye: Present: normal appearance ENT: Present: mucous membranes moist - Routine Neck Exam Present: full ROM - Routine Respiratory Exam Present: CTAB - Routine Cardiovascular Exam Cardiovascular: Present: RRR, S1, S2 - Routine Abdominal Exam Present: soft, nontender - Routine Extremities Exam Present: nontender - Routine Back/Spine/Pelvis Exam Back/Spine: Present: full ROM - Routine Skin Exam Present: intact - Routine Neurological Exam Present: alert, oriented X3, vision grossly intact - Detailed Neurological Exam: Coma Scale Eye Opening: Spontaneous (4) - Routine Psychiatric Exam Present: normal affect Data - Labs CBC & Chem 7: 04/22/20 08:29 04/22/20 08:29 Labs: 01/15/20 08:15 Complete Blood Count Auto Diff Routine Comprehensive Met. Panel Routine TSH reflex Free T4 Routine 04/22/20 08:29 Complete Blood Count Auto Diff Routine Comprehensive Met. Panel Routine LDH [Lactate Dehydrogenase] Routine Laboratory Last Values WBC 10.2 X10*3/uL (4.8-10.8) 04/22/20 08:29 RBC 4.69 X10*6/uL (4.60-5.80) 04/22/20 08: Hgb 13.3 g/dl (14.0-18.0) L 04/22/20 08: Hct 40.9 % (42-52) L 04/22/20 08: MCV 87.2 fL (80-98) 04/22/20 08: MCH 28.4 pg (27.0-33.0) 04/22/20 08: MCHC 32.5 g/dl (31.0-36.0) 04/22/20 08: RDW 12.6 % (11.0-16.0) 04/22/20 08: Plt Count 256 X10*3/uL (160-400) 04/22/20 08: MPV 9.6 fL (9.4-12.4) 04/22/20 08: Immature Gran % (Auto) 0.6 % (0.0-0.4) H 04/22/20 08: Neut % (Auto) 46.2 % (45-73) 04/22/20 08: Lymph % (Auto) 43.3 % (20-40) H 04/22/20 08: [place] % (Auto) 3.9 % (2-11) 04/22/20 08: Eos % (Auto) 5.1 % (0-4) H 04/22/20 08: Baso % (Auto) 0.9 % (0-2) 04/22/20 08: Lymph # (Auto) 4.4 X10*3/uL (1.2-4.9) 04/22/20 08: [place] # (Auto) 0.4 X10*3/uL (0.1-1.2) 04/22/20 08: Eos # (Auto) 0.5 X10*3/uL (0.0-0.4) H 04/22/20 08: Baso # (Auto) 0.1 X10*3/uL (0.0-0.2) 04/22/20 08: Abs Immat Gran (auto) 0.06 X10*3/uL (0.00-0.03) H 04/22/20 08: Absolute Neuts (auto) 4.7 X10*3/uL (2.0-8.3) 04/22/20 08:29 Absolute Nucleated RBC 0.000 X10*3/uL (0.0-0.012) 04/22/20 08: Nucleated RBC % (auto) 0.0 /100WBC (0.0-0.2) 04/22/20 08:29 Sodium 141 mmol/L (135-145) 04/22/20 08:29 Potassium 4.0 mmol/l (3.3-5.1) 04/22/20 08:29 Chloride 105 mmol/L (96-108) 04/22/20 08:29 Carbon Dioxide 25 mmol/L (22-29) 04/22/20 08:29 Anion Gap 15 (12-20) 04/22/20 08:29 BUN 21 mg/dL (9-16) H 04/22/20 08:29 Creatinine 1.13 mg/dL (0.5-1.4) 04/22/20 08:29 Estim Creat Clear Calc 99.7 04/22/20 08:29 Estimated GFR > 60 04/22/20 08:29 Random Glucose 125 mg/dL (60-115) H D 04/22/20 08:29 Calcium 8.8 mg/dL (8.4-10.2) D 04/22/20 08:29 Total Bilirubin 0.8 mg/dL (0.0-1.0) 04/22/20 08:29 AST 20 U/L (5-37) 04/22/20 08: ALT 17 U/L (0-40) 04/22/20 08:29 Alkaline Phosphatase 45 U/L (39-117) 04/22/20 08:29 Lactate Dehydrogenase 197 U/L (118-273) 04/22/20 08:29 Total Protein 7.0 g/dL (6.5-8.0) 04/22/20 08:29 Albumin 4.3 g/dL (3.5-5.0) 04/22/20 08:29 TSH 1.29 mIU/mL (0.32-4.0) 01/15/20 08:15 Progress Note: A/P (1) Malignant melanoma Status: Acute Assessment and plan: This is a pleasant 59 year-old gentleman, with history of: 1. Atrial fibrillation. He is under the care of Cardiology. He is on flecainide and Eliquis. 2. Restless leg syndrome. He is taking 2 Tylenol 4 times a day. I have asked him to cut back to twice a day. 3. Malignant Melanoma. He was started on Ipilimumab in July 2016. He tolerated it reasonably well. He developed Hypophysitis, for which he is on Prednisone and Levoxyl. He is being managed by [facility]. He remains on Prednisone 5 mg daily. The dose of Synthroid was optimized. He completed his 3 years course of Ipilimumab maintenance, a couple of years ago. Back in the spring, he was in house for COPD exacerbation. he had required increased dose of steroids. A chest x-ray from May 05 revealed: 1. No acute cardiopulmonary process. 2. Sclerotic densities overlying the proximal left humerus are nonspecific, but were not as well-seen previously. Osseous metastatic disease cannot be excluded. He had a bone scan for further evaluation of the nonspecific sclerotic lesions in the left humerus. This was done on June 14 and revealed: 1. There is no abnormality in the left proximal humerus that corresponds to a sclerotic focus on recent radiograph. This suggests a nonaggressive etiology or a density that is not in the humerus. 2. A few mild nonspecific abnormalities are noted as described above and these are all likely arthritic or traumatic in etiology. None of these abnormalities is strongly suspicious for metastatic disease. He is doing fairly well. He has completed the 3 years of adjuvant therapy for melanoma. PLAN: He has seen Dr. Wheeler, for back pain. He does not wish to undergo any surgery at this point. He will return for a follow-up in 6 months time. He will continue to follow up with endocrinology. he will continue to follow up with Dermatology for his detailed skin exams. Thank you, CC: Dr. Shen. Dr. Peters. - Time Spent With Patient Total time spent is greater than 50% in coordination of care (as documented) at patient's floor/unit and/or counseling patient: 25 - 35 minutes
[2020-08-11 09:03] LABS: MANUAL DIFF FLAG NO
[2020-08-11 09:08] LABS: Basophils Absolute Auto 0.1 X10*3/uL (0.0-0.2); Basophils Percent Auto 0.6 % (0-2); Eosinophils Absolute Auto 0.3 X10*3/uL (0.0-0.4); Eosinophils Percent Auto 2.9 % (0-4); Hematocrit 40.9 % (42-52); Hemoglobin 13.5 g/dl (14.0-18.0); Imm Gran Abs Auto 0.04 X10*3/uL (0.00-0.03); Imm Gran Pct Auto 0.4 % (0.0-0.4); Lymphocytes Absolute Auto 2.8 X10*3/uL (1.2-4.9); Lymphocytes Percent Auto 26.7 % (20-40); Mean Corpuscular Hemoglobin 28.7 pg (27.0-33.0); Mean Corpuscular Volume 86.8 fL (80-98); Mean Platelet Volume 9.6 fL (9.4-12.4); Monocytes Absolute Auto 0.5 X10*3/uL (0.1-1.2); Neutrophils Absolute Auto 6.8 X10*3/uL (2.0-8.3); Neutrophils Percent Auto 64.4 % (45-73); Platelet Count 245 X10*3/uL (160-400); Red Blood Count 4.71 X10*6/uL (4.60-5.80); Red Cell Distribution Width 12.2 % (11.0-16.0); White Blood Count 10.5 X10*3/uL (4.8-10.8)
[2020-08-11 09:30] VITALS: BP 157/72; PULSE 53; RESP 12; TEMP 36.9; O2SAT 96; BMI 36.5
[2020-08-11 09:39] LABS: Alanine Aminotransferase 18 U/L (0-40); Albumin Level 4.2 g/dL (3.5-5.0); Alkaline Phosphatase 60 U/L (39-117); Anion Gap 13 (12-20); Aspartate Amino Transferase 15 U/L (5-37); Bilirubin Total 0.4 mg/dL (0.0-1.0); Blood Urea Nitrogen 21 mg/dL (9-16); Carbon Dioxide 28 mmol/L (22-29); Chloride 104 mmol/L (96-108); Creatinine Clr Calc Pharmacy 96.6; Estimated Glomerular Filt Rate > 60; Glucose Random 150 mg/dL (60-115); Lactate Dehydrogenase 149 U/L (118-273); Potassium 4.3 mmol/L (3.3-5.1); Sodium 141 mmol/L (135-145); Total Protein 6.6 g/dL (6.5-8.0)
--- NOTE | 2020-08-11 10:18 | MHC.HEMONCMA ---
Pt present to f/u on malignant melanoma. History reviewed and labs drawn.
--- NOTE | 2020-08-11 18:04 | P.PNHO_ITS ---
Medical Summary - Medical Summary Date of Service: 08/11/20 Chief complaint: Follow-up for: Malignant melanoma. Medical Summary: DIAGNOSIS: 1. Malignant melanoma of lower back 2. S/P WIDE EXCISION OF MELANOMA 3. S/P RIGHT INGUINAL AND FEMORAL LYMPHADENECTOMY 4. Mass of left kidney. CURRENT THERAPY: IPILIMUMAB, 4TH CYCLE ON 11/19. STARTED MAINTAINENCE IPILIMUMAB ON January. SECOND DOSE ON April. Completed the third dose 08/05/17. Fifth dose, 01/20/18. Sixth dose on 04/14/18. Seventh dose on 07/07/2018. Eleventh dose On 11/29. Interval History Interval history: This is a pleasant 59-year-old gentleman, here for a follow-up visit. He is feeling very well. He has had lower back pain. He has had it since after the fall. He has had physical therapy for his knee and shoulder. He was on tramadol 50 mg but he has stopped taking it now. He saw Dr. Wheeler for back pain. He does not want to have surgery. He is actually scheduled for an injection by Pain Management tomorrow. He denies feeling fatigued. He has COPD. That is the limiting factor for him since unable to work. He denies headache no dizziness. No fever nor chills. No further chest pain or trouble breathing. He denies cough nor sputum. He denies abdominal pain nausea vomiting heartburn indigestion. His bowels are working without any gross blood in it. His appetite is not that great. He is losing weight. He has elected to join the [employer]. He is in good spirits. Rest of the review of systems is unremarkable. He goes for regular skin exams. He has an exam coming up. Previous history: He has noted some more fatty tumors. he has to see Dr. Peters, to have them excised. He tells me he has had a, [place], in his back, for 37 years. It hurts to move. He thinks his sciatic nerve is impinged. He has to see Dr. Carleen Wheeler, to have it removed. Review of Systems - Constitutional Reports no additional constitutional complaints - Eyes Reports no additional eye complaints - ENT Reports no additional ear, nose, mouth, and throat complaints - Cardiovascular Reports no additional cardiovascular complaints - Respiratory Reports no additional respiratory complaints - Gastrointestinal Reports no additional gastrointestinal complaints - Genitourinary Genitourinary: Reports no additional male genitourinary complaints - Musculoskeletal Reports no additional musculoskeletal complaints - Integumentary/Breasts Skin/Breast: Reports no additional skin complaints - Neurologic Reports no additional neurologic complaints - Psychiatric Reports no additional psychiatric complaints - Endocrine Reports no additional endocrine complaints - Hematologic/Lymphatic Reports no additional hematologic/lymphatic complaints - Allergic/Immunologic Reports no additional allergic/immunologic complaints [facility] Medical History: Medical History (Last Reviewed 08/11/20 @ 09:31 by Elizabeth Edwards) Adrenal insufficiency Atrial fibrillation Bursitis of left shoulder COPD (chronic obstructive pulmonary disease) Diabetes Essential hypertension High blood pressure Obesity (BMI 30-39.9) KIERA on CPAP PAF (paroxysmal atrial fibrillation) Skin cancer Functional capacity: independent ambulation Patient : No Family History: Family History (Last Reviewed 08/11/20 @ 09:31 by Elizabeth Edwards) Father Cancer of prostate HTN (hypertension) Mother HTN (hypertension) Brother No problems noted. Brother No problems noted. Brother No problems noted. Surgical History: Surgical History (Last Reviewed 08/11/20 @ 09:31 by Elizabeth Edwards) History of melanoma excision History of tonsillectomy S/P excision of lipoma Social History: Social History (Last Reviewed 08/11/20 @ 09:31 by Elizabeth Edwards) Alcohol History: Alcohol intake: never Tobacco History: Smoking Status: Former smoker Advance Directives: Advance Directives: Yes Advance Directives on File: Yes Advance Directives Date on File: 05/28/16 Nutrition Assessment: Patient : No Smoking status: Former smoker Oncology Screenings - ECOG Performance Status ECOG Performance Status: 0 Home Medications and Allergies Home Medications Medication Instructions Recorded Confirmed Type diltiazem HCl 120 mg PO BID 01/15/20 07/23/20 History docusate sodium [Colace] 100 mg PO DAILY 01/15/20 07/23/20 History fluticasone propion-salmeterol 1 inh INHALATION BID 01/15/20 07/23/20 History [Advair Diskus] blood sugar diagnostic #10 ea 01/22/20 08/11/20 History prednisone 5 mg tablet 5 mg PO DAILY 01/22/20 08/11/20 History lancets 28 gauge #100 ea 04/01/20 08/11/20 History levothyroxine 100 mcg tablet 100 mcg PO DAILY 07/17/20 08/11/20 History metformin 500 mg tablet 500 mg PO BID tab 08/04/20 08/11/20 History Allergies Allergy/AdvReac Type Severity Reaction Status Date / Time Influenza Virus Vaccines AdvReac Unknown severe Verified 07/23/20 08:17 swelling in arm Exam Vital signs: Vital Signs Temp 98.4 F 08/11/20 09:30 Pulse 53 08/11/20 09:30 Resp 12 08/11/20 09:30 BP 157/72 H 08/11/20 09:30 Pulse Ox 96 08/11/20 09:30 Intake & Output 08/10/20 08/11/20 08/11/20 18:59 06:59 18:59 Other: Weight 129 kg Weight in Grams [id number] Weight 129 kg Body Mass Index 36.5 - Constitutional Present: no acute distress - Routine HEENT Exam Head: Present: normal inspection Eye: Present: normal appearance ENT: Present: mucous membranes moist - Routine Neck Exam Present: full ROM - Routine Respiratory Exam Present: CTAB - Routine Cardiovascular Exam Cardiovascular: Present: RRR, S1, S2 - Routine Abdominal Exam Present: soft, nontender - Routine Extremities Exam Present: nontender - Routine Back/Spine/Pelvis Exam Back/Spine: Present: full ROM - Routine Skin Exam Present: intact - Routine Neurological Exam Present: alert, oriented X3, vision grossly intact - Detailed Neurological Exam: Coma Scale Eye Opening: Spontaneous (4) - Routine Psychiatric Exam Present: normal affect Data - Labs CBC & Chem 7: 08/11/20 08:54 08/11/20 08:54 Labs: 01/15/20 08:15 Complete Blood Count Auto Diff Routine Comprehensive Met. Panel Routine TSH reflex Free T4 Routine 04/22/20 08:29 Complete Blood Count Auto Diff Routine Comprehensive Met. Panel Routine LDH [Lactate Dehydrogenase] Routine Laboratory Last Values WBC 10.2 X10*3/uL (4.8-10.8) 04/22/20 08:29 RBC 4.69 X10*6/uL (4.60-5.80) 04/22/20 08:29 Hgb 13.3 g/dl (14.0-18.0) L 04/22/20 08:29 Hct 40.9 % (42-52) L 04/22/20 08:29 MCV 87.2 fL (80-98) 04/22/20 08: MCH 28.4 pg (27.0-33.0) 04/22/20 08: MCHC 32.5 g/dl (31.0-36.0) 04/22/20 08: RDW 12.6 % (11.0-16.0) 04/22/20 08: Plt Count 256 X10*3/uL (160-400) 04/22/20 08: MPV 9.6 fL (9.4-12.4) 04/22/20 08: Immature Gran % (Auto) 0.6 % (0.0-0.4) H 04/22/20 08: Neut % (Auto) 46.2 % (45-73) 04/22/20 08: Lymph % (Auto) 43.3 % (20-40) H 04/22/20 08: [place] % (Auto) 3.9 % (2-11) 04/22/20 08: Eos % (Auto) 5.1 % (0-4) H 04/22/20 08: Baso % (Auto) 0.9 % (0-2) 04/22/20 08: Lymph # (Auto) 4.4 X10*3/uL (1.2-4.9) 04/22/20 08: [place] # (Auto) 0.4 X10*3/uL (0.1-1.2) 04/22/20 08: Eos # (Auto) 0.5 X10*3/uL (0.0-0.4) H 04/22/20 08: Baso # (Auto) 0.1 X10*3/uL (0.0-0.2) 04/22/20 08: Abs Immat Gran (auto) 0.06 X10*3/uL (0.00-0.03) H 04/22/20 08: Absolute Neuts (auto) 4.7 X10*3/uL (2.0-8.3) 04/22/20 08: Absolute Nucleated RBC 0.000 X10*3/uL (0.0-0.012) 04/22/20 08: Nucleated RBC % (auto) 0.0 /100WBC (0.0-0.2) 04/22/20 08:29 Sodium 141 mmol/L (135-145) 04/22/20 08:29 Potassium 4.0 mmol/l (3.3-5.1) 04/22/20 08:29 Chloride 105 mmol/L (96-108) 04/22/20 08:29 Carbon Dioxide 25 mmol/L (22-29) 04/22/20 08:29 Anion Gap 15 (12-20) 04/22/20 08:29 BUN 21 mg/dL (9-16) H 04/22/20 08:29 Creatinine 1.13 mg/dL (0.5-1.4) 04/22/20 08:29 Estim Creat Clear Calc 99.7 04/22/20 08:29 Estimated GFR > 60 04/22/20 08:29 Random Glucose 125 mg/dL (60-115) H D 04/22/20 08:29 Calcium 8.8 mg/dL (8.4-10.2) D 04/22/20 08:29 Total Bilirubin 0.8 mg/dL (0.0-1.0) 04/22/20 08:29 AST 20 U/L (5-37) 04/22/20 08:29 ALT 17 U/L (0-40) 04/22/20 08:29 Alkaline Phosphatase 45 U/L (39-117) 04/22/20 08:29 Lactate Dehydrogenase 197 U/L (118-273) 04/22/20 08:29 Total Protein 7.0 g/dL (6.5-8.0) 04/22/20 08:29 Albumin 4.3 g/dL (3.5-5.0) 04/22/20 08:29 TSH 1.29 mIU/mL (0.32-4.0) 01/15/20 08:15 Progress Note: A/P (1) Malignant melanoma Status: Acute Assessment and plan: This is a pleasant 60 year-old gentleman, with history of: 1. Atrial fibrillation. He is under the care of Cardiology. He is on flecainide and Eliquis. 2. Restless leg syndrome. He is taking 2 Tylenol 4 times a day. I have asked him to cut back to twice a day. 3. Malignant Melanoma. He was started on Ipilimumab in July 2016. He tolerated it reasonably well. He developed Hypophysitis, for which he is on Prednisone and Levoxyl. He is being managed by [facility]. He remains on Prednisone 5 mg daily. The dose of Synthroid was optimized. He completed his 3 years course of Ipilimumab maintenance, a couple of years ago. Back in the spring, he was in house for COPD exacerbation. he had required increased dose of steroids. A chest x-ray from May 05 revealed: 1. No acute cardiopulmonary process. 2. Sclerotic densities overlying the proximal left humerus are nonspecific, but were not as well-seen previously. Osseous metastatic disease cannot be excluded. He had a bone scan for further evaluation of the nonspecific sclerotic lesions in the left humerus. This was done on June 14 and revealed: 1. There is no abnormality in the left proximal humerus that corresponds to a sclerotic focus on recent radiograph. This suggests a nonaggressive etiology or a density that is not in the humerus. 2. A few mild nonspecific abnormalities are noted as described above and these a re all likely arthritic or traumatic in etiology. None of these abnormalities is strongly suspicious for metastatic disease. He is doing very well. He has completed the 3 years of adjuvant therapy for melanoma. He tells me he is moving to [place] with his mom. He already got the mobile home there. That is fully furnished. He is actually leaving next Tuesday. PLAN: He has seen Pain Management here for back pain. He will be going for an injection tomorrow. I advised him to call us once he knows with whom he will be following there. We can send the medical records. He will continue to follow up with Dermatology for his detailed skin exams in [place]. I wish him the best of luck. Thank you, CC: Dr. Shen. Dr. Peters. - Time Spent With Patient Total time spent is greater than 50% in coordination of care (as documented) at patient's floor/unit and/or counseling patient: 25 - 35 minutes
== END | disposition home or self-care (01) ==
LOC: HO.ONC 01-15 07:29
PROVIDERS: PCP Nurse Practitioner Family; Visit Provider Internal Medicine Medical Oncology
DX: Z85.820 Personal history of malignant melanoma of skin (principal); I48.91 Unspecified atrial fibrillation; G25.81 Restless legs syndrome; Z79.01 Long term (current) use of anticoagulants; Z79.899 Other long term (current) drug therapy; Z92.21 Personal history of antineoplastic chemotherapy
CPT/HCPCS: 36415; 80053; 83615; 84443; 85025; 99214